=== PATIENT | male | born 1975 | race American Indian/Alaskan Native ===

== ENCOUNTER 2016-12-26 23:39 | Emergency (ER) | payer SELFPAY ==
[2016-12-27 00:09] VITALS: BP 135/85
[2016-12-27 00:32] LABS: Basophils % (Auto) 0.6 % (0.0-1.8); Hematocrit 48.3 % (35.5-45.6); Hemoglobin 15.7 gm/dl (11.8-15.2); Mean Corpuscular HGB Conc 33 % (32-34); Mean Corpuscular Hemoglobin 30 pg (28-32); Mean Corpuscular Volume 93 fl (84-94); Platelet Count 301 K/mm3 (140-440); Red Blood Count 5.19 M/mm3 (3.65-5.03); Red Cell Distribution Width 14.8 % (13.2-15.2); White Blood Count 13.9 K/mm3 (4.5-11.0)
--- NOTE | 2016-12-27 00:49 | Cat Scan Report ---
FINAL REPORT PROCEDURE: CT HEAD/BRAIN WO CON TECHNIQUE: Computerized tomography of the head was performed without contrast material. HISTORY: fall +LOC, ETOH, +Neuro COMPARISON: 01/02/2014 FINDINGS: Skull and scalp: Normal. Paranasal sinuses: Normal. Ventricles and subarachnoid spaces: Normal. Cerebrum: No evidence of hemorrhage, acute infarction or mass . Cerebellum and brainstem: No evidence of hemorrhage, acute infarction or mass. Vasculature: Normal. Comments: None. IMPRESSION: There is no evidence of an acute intracranial process.
--- NOTE | 2016-12-27 00:50 | Cat Scan Report ---
FINAL REPORT PROCEDURE: CT CERVICAL SPINE WO CON TECHNIQUE: Computerized tomography of the cervical spine was performed from the skull base to T1 without contrast material. HISTORY: fall +LOC, ETOH, +Neuro COMPARISON: No prior studies are available for comparison. FINDINGS: The alignment of the vertebral segments is normal. No acute fracture or dislocation. The heights of the vertebral bodies and the disc spaces are maintained. The spinal canal is maintained throughout the cervical spine. The visualized portion of the airway is patent. IMPRESSION: There is no evidence of an acute fracture or dislocation of the cervical spine..
[2016-12-27 01:01] LABS: BUN/Creatinine Ratio 6.36; Blood Urea Nitrogen 7 mg/dL (9-20); Calcium 9.3 mg/dL (8.4-10.2); Carbon Dioxide 15 mmol/L (22-30); Glucose 93 mg/dL (75-100)
[2016-12-27 01:02] LABS: Anion Gap 29 mmol/L; Chloride 99.3 mmol/L (98-107); Potassium 3.8 mmol/L (3.6-5.0); Sodium 139 mmol/L (137-145)
--- NOTE | 2016-12-27 01:16 | XRay Report ---
FINAL REPORT PROCEDURE: XR FOREARM 1V RT TECHNIQUE: RIGHT forearm radiographs, AP views. CPT 03231 HISTORY: Fall, Lac to Rt arm, get report COMPARISON: No prior studies are available for comparison. FINDINGS: There is no acute fracture or dislocation. No radiopaque foreign object. The joint spaces are maintained. IMPRESSION: No acute fracture or dislocation.
--- NOTE | 2016-12-27 01:17 | XRay Report ---
FINAL REPORT PROCEDURE: XR SPINE LUMBOSACRAL 2-3V TECHNIQUE: Lumbar spine radiographs, including AP, lateral, and lumbosacral spot views. CPT 99751 HISTORY: fall Rt Arm Lac, ETOH, Get Report..PT FELL C/O LOWER BACK PAIN/EM COMPARISON: No prior studies are available for comparison. FINDINGS: Alignment: Normal. Vertebral body heights/Disk spaces: Normal. Fracture(s): None. Facets: Normal. Bone mineralization: Normal. IMPRESSION: There is no evidence of an acute fracture or dislocation of the lumbar spine..
== END 2016-12-27 01:00 | disposition left against medical advice (07) ==
LOC: ED 23:39
DX: Z53.21 Procedure and treatment not carried out due to patient leaving prior to being seen by health care provider (principal)
CPT/HCPCS: 36415; 70450; 72100; 72125; 73090; 80048; 85025; G0480; 80320

== ENCOUNTER 2018-01-22 09:57 | Emergency (ER) | payer SELFPAY ==
[2018-01-22] MEDS ORDERED: MOTRIN PO ONE (10:23)
[2018-01-22] MEDS ORDERED: XYLOCAINE 1% 20 mL INFILTRATI ONE (10:23)
[2018-01-22] MEDS ORDERED: CLEOCIN PO ONE (10:24)
--- NOTE | 2018-01-22 10:25 | Emergency Department Report ---
Blank Doc - Documentation Documentation: Patient is a 6-year-old male who has abscess of the right mendez for the past 2 days. Focused physical exam patient does have a quarter sized area of swelling erythema induration with central fluctuance. Patient be moved to a treatment room for I&D. Patient given Motrin 800 and clindamycin for antibiotic coverage.
--- NOTE | 2018-01-22 11:28 | Emergency Department Report ---
Abscess Boil HPI - HPI Chief Complaint: Skin/Abscess/Foreign Body Stated Complaint: JAW PAIN Time Seen by Provider: 01/22/18 10:17 Duration: 3 Days Location: Head (under chin) Severity: Moderate History: Yes Pain, Yes Insect Bite (suspected spider bite), No Fever, No Purulent Drainage, No Numbness, No Foreign Body, No Previous History HPI: This is a 42-year-old -[place] male who presents with an abscess under right side of chin from suspected spider bite for 3 days. 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 He is now complaining of pain 10 out of 10 on pain is scale sharp achy sensation. Patient reports swelling and warmth to the area. He complains of discomfort while eating or moving mouth. Patient reports pain is radiating down neck. He started applying alcohol and taken ibuprofen for symptom relief with no improvement. Patient reports last tetanus vaccine one year ago. He denies fever, drainage, numbness or tingling, bruising, difficulty swallowing, sore throat, nausea or vomiting. Home Medications: Previous Rx's Medication Instructions Recorded Last Taken Type Azithromycin [Zithromax Z-MEL] 250 mg PO DAILY #6 tablet 01/02/14 Unknown Rx HYDROcodone/APAP 5-325 [[place] 1 each PO Q6HR PRN #20 tablet 01/02/14 Unknown Rx 5/325] Prednisone [Prednisone 10 mg 10 mg PO .TAPER #1 tab.ds.pk 01/02/14 Unknown Rx (6-Day Pack, 21 Tabs)] Promethazine [Phenergan] 25 mg PO Q6H PRN #30 tablet 01/02/14 Unknown Rx Clindamycin [Clindamycin CAP] 300 mg PO Q8H #21 cap 01/22/18 Unknown Rx Ibuprofen [Motrin 800 MG tab] 800 mg PO Q8HR PRN #12 tablet 01/22/18 Unknown Rx Allergies/Adverse Reactions: Allergies Allergy/AdvReac Type Severity Reaction Status Date / Time No Known Allergies Allergy Verified 01/01/14 21:16 ED Review of Systems ROS: Stated complaint: JAW PAIN Other details as noted in HPI Constitutional: denies: chills, fever ENT: denies: ear pain, throat pain Respiratory: denies: cough, shortness of breath, wheezing Cardiovascular: denies: chest pain, palpitations Gastrointestinal: denies: abdominal pain, nausea, diarrhea Skin: lesions (abscess under right side of chin). denies: rash Neurological: denies: headache, weakness, paresthesias Psychiatric: denies: anxiety, depression ED Past Medical Hx - Past Medical History Previous Medical History?: Yes Hx Sickle Cell Disease: Yes (sickle cell trait) Hx Asthma: Yes - Surgical History Past Surgical History?: No - Social History Smoking Status: Current Every Day Smoker Substance Use Type: None - Medications Home Medications: Home Medications Medication Instructions Recorded Confirmed Last Taken Type Azithromycin [Zithromax Z-MEL] 250 mg PO DAILY #6 tablet 01/02/14 Unknown Rx HYDROcodone/APAP 5-325 [[place] 1 each PO Q6HR PRN #20 tablet 01/02/14 Unknown Rx 5/325] Prednisone [Prednisone 10 mg 10 mg PO .TAPER #1 tab.ds.pk 01/02/14 Unknown Rx (6-Day Pack, 21 Tabs)] Promethazine [Phenergan] 25 mg PO Q6H PRN #30 tablet 01/02/14 Unknown Rx Clindamycin [Clindamycin CAP] 300 mg PO Q8H #21 cap 01/22/18 Unknown Rx Ibuprofen [Motrin 800 MG tab] 800 mg PO Q8HR PRN #12 tablet 01/22/18 Unknown Rx ED Abscess Boil Physical Exam - Exam General: Vital signs noted. No distress. Alert and acting appropriately. Front/Back of Body, Lg (Color): 1 - Half a centimeter fluctuant abscess of right mandible, tenderness, erythema , and induration Size: 1 cm (half a centimeter) Exam: Yes Tenderness, Yes Fluctuance, Yes Surrounding Cellulites/Erythema, Yes Normal Neurologic Exam, Yes Normal Circulation, No Lymphangitis, No Crepitation , No Heart Murmur I & D Note - I & D Note I & D Note: The area was prepared and draped in the usual, sterile manner. The site was anesthetized with 1% lidocaine without epinephrine. A linear incision along the local skin lines was made and the purulent material expressed. The abcess was explored thoroughly and sequestered pockets were opened. Bleeding was minimal. Packing: idodoform. Followup: The patient tolerated the procedure well without complications. Standard post-procedure care was explained and return precautions are given. ED Course Vital Signs 01/22/18 10:02 Temperature 98.4 F Pulse Rate 63 Respiratory 18 Rate Blood Pressure 115/69 O2 Sat by Pulse 99 Oximetry Critical care attestation.: If time is entered above; I have spent that time in minutes in the direct care of this critically ill patient, excluding procedure time. ED Medical Decision Making - Medical Decision Making This is a 42 y.o. male that presents with a painful abscess to right side and chin for 3 days. No history of prior abscess. Suspected spider bite. Patient is stable and examined by me and Dr. Evans. Physical assessment of half a centimeter fluctuance nodule to right mandible. No acute signs of distress noted. Given analgesic in ER. I&D refer to note. Discussed plan to start clindamycin and ibuprofen with patient. Educated patient on follow up plan to have packing removed and wound reassessed in 2-3 days. Patient agrees to ED plan of care. Discharged home and follow up with PCP in 2-3 days. ED Disposition Clinical Impression: Abscess of chin Disposition: DC- TO HOME OR SELFCARE Is pt being admited?: No Does the pt Need Aspirin: No Condition: Stable Instructions: Abscess Incision and Drainage (ED), Abscess (ED) Additional Instructions: Keep packing in place for 2-3 days. Return to ER or f/u with PCP to have packing removed and wound reassessed. Complete full round of clindamycin antibiotic as prescribed. Follow up with PCP or ER in 2-3 days. Return to ER if foul smelling discharge, swelling, or severe pain to wound. Prescriptions: Clindamycin [Clindamycin CAP] 300 mg PO Q8H #21 cap Ibuprofen [Motrin 800 MG tab] 800 mg PO Q8HR PRN #12 tablet PRN Reason: Pain , Severe (7-10) Referrals: [facility] [Outside] - 3-5 Days [facility] [Outside] - 3-5 Days [facility] [Outside] - 3-5 Days Time of Disposition: 11:57 Print Language: OCCITAN
[2018-01-22 12:24] VITALS: BP 115/74
== END 2018-01-22 12:23 | disposition home or self-care (01) ==
LOC: ED 09:57
DX: L02.01 Cutaneous abscess of face (principal); J45.909 Unspecified asthma, uncomplicated; F17.200 Nicotine dependence, unspecified, uncomplicated
CPT/HCPCS: 99283

== ENCOUNTER 2018-06-18 08:53 | Emergency (ER) | payer SELFPAY ==
[2018-06-18 10:07] VITALS: BP 122/79
[2018-06-18] MEDS ORDERED: NORCO 10/325 PO ONE (10:17)
[2018-06-18] MEDS ORDERED: ZOFRAN ODT PO ONE (10:17)
[2018-06-18 10:34] LABS: Basophils # (Auto) 0.1 K/mm3 (0.0-0.1); Basophils % (Auto) 1.7 % (0.0-1.8); Eosinophils % (Auto) 0.4 % (0.0-4.3); Hematocrit 47.5 % (35.5-45.6); Hemoglobin 16.1 gm/dl (11.8-15.2); Lymphocytes % (Auto) 39.4 % (13.4-35.0); Mean Corpuscular HGB Conc 34 % (32-34); Mean Corpuscular Volume 91 fl (84-94); Monocytes # (Auto) 0.5 K/mm3 (0.0-0.8); Monocytes % (Auto) 10.1 % (0.0-7.3); Platelet Count 272 K/mm3 (140-440); Red Blood Count 5.24 M/mm3 (3.65-5.03); Red Cell Distribution Width 14.6 % (13.2-15.2)
[2018-06-18 10:48] LABS: Alanine Aminotransferase 20 units/L (7-56); Albumin 4.5 g/dL (3.9-5); BUN/Creatinine Ratio 9; Blood Urea Nitrogen 6 mg/dL (9-20); Calcium 9.1 mg/dL (8.4-10.2); Hemolysis Index 25
--- NOTE | 2018-06-18 11:48 | XRay Report ---
RIGHT RIBS, 3 VIEWS: History: pain. Routine views of the rib cage demonstrate normal mineralization with no significant contour abnormalities, fractures or destructive lesions. PA view of the chest demonstrates no underlying cardiopulmonary abnormalities, fluid or pneumothorax. IMPRESSION: Unremarkable right rib series.
--- NOTE | 2018-06-18 12:03 | Emergency Department Report ---
ED General Adult HPI - General Chief complaint: Dyspnea/Respdistress Stated complaint: CB Time Seen by Provider: 06/18/18 10:03 Source: patient, EMS Mode of arrival: Ambulatory Limitations: No Limitations - History of Present Illness Initial comments: Patient presents to emergency department with chief complaint of a cough with right sided rib cage pain. Patient states the cough started about a month ago and has been on and off since that time but he noticed that he began to have severe right sided rib pain 3 days ago. The patient denies any injury to his ribs. 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 Patient denies any chest pain. Patient states the right rib pain is so intense he is not able to wear shirt over it. -: Gradual Location: chest Radiation: non-radiation Severity scale (0 -10): 10 Quality: sharp Consistency: constant Improves with: none Worsens with: none Associated Symptoms: denies other symptoms Treatments Prior to Arrival: none - Related Data Previous Rx's Medication Instructions Recorded Last Taken Type Azithromycin [Zithromax Z-MEL] 250 mg PO DAILY #6 tablet 01/02/14 Unknown Rx HYDROcodone/APAP 5-325 [[place] 1 each PO Q6HR PRN #20 tablet 01/02/14 Unknown Rx 5/325] Prednisone [Prednisone 10 mg 10 mg PO .TAPER #1 tab.ds.pk 01/02/14 Unknown Rx (6-Day Pack, 21 Tabs)] Promethazine [Phenergan] 25 mg PO Q6H PRN #30 tablet 01/02/14 Unknown Rx Clindamycin [Clindamycin CAP] 300 mg PO Q8H #21 cap 01/22/18 Unknown Rx Ibuprofen [Motrin 800 MG tab] 800 mg PO Q8HR PRN #12 tablet 01/22/18 Unknown Rx Acetaminophen/Codeine [Tylenol 1 tab PO Q6H PRN #14 tab 03/21/18 Unknown Rx /Codeine # 3 tab] Cetirizine HCl [ZyrTEC] 10 mg PO QAM 14 Days #14 capsule 03/21/18 Unknown Rx Fluticasone [Flonase] 1 spray NS QDAY 14 Days #1 bottle 03/21/18 Unknown Rx Ibuprofen [Motrin] 800 mg PO Q8HR PRN #15 tablet 03/21/18 Unknown Rx Penicillin V Potassium 500 mg PO Q8H 10 Days #30 tablet 03/21/18 Unknown Rx Acyclovir [Zovirax Tab] 400 mg PO 5XD #35 tablet 06/18/18 Unknown Rx Ibuprofen [Motrin] 800 mg PO Q8HR PRN #30 tablet 06/18/18 Unknown Rx oxyCODONE /ACETAMINOPHEN [Percocet 1 tab PO Q6HR PRN #20 tablet 06/18/18 Unknown Rx 5/325] Allergies Allergy/AdvReac Type Severity Reaction Status Date / Time No Known Allergies Allergy Verified 06/18/18 08:54 ED Review of Systems ROS: Stated complaint: CB Other details as noted in HPI Comment: All other systems reviewed and negative Constitutional: denies: chills, fever Eyes: denies: eye pain, eye discharge, vision change ENT: denies: ear pain, throat pain Respiratory: denies: cough, shortness of breath, wheezing Cardiovascular: denies: chest pain, palpitations Endocrine: no symptoms reported Gastrointestinal: denies: abdominal pain, nausea, diarrhea Genitourinary: denies: urgency, dysuria Musculoskeletal: denies: back pain, joint swelling, arthralgia Skin: denies: rash, lesions Neurological: denies: headache, weakness, paresthesias Psychiatric: denies: anxiety, depression Hematological/Lymphatic: denies: easy bleeding, easy bruising ED Past Medical Hx - Past Medical History Previous Medical History?: Yes Hx Sickle Cell Disease: Yes (sickle cell trait) Hx Asthma: Yes - Surgical History Past Surgical History?: No Additional Surgical History: bronchitis - Social History Smoking Status: Current Every Day Smoker Substance Use Type: None - Medications Home Medications: Home Medications Medication Instructions Recorded Confirmed Last Taken Type Azithromycin [Zithromax Z-MEL] 250 mg PO DAILY #6 tablet 01/02/14 Unknown Rx HYDROcodone/APAP 5-325 [[place] 1 each PO Q6HR PRN #20 tablet 01/02/14 Unknown Rx 5/325] Prednisone [Prednisone 10 mg 10 mg PO .TAPER #1 tab.ds.pk 01/02/14 Unknown Rx (6-Day Pack, 21 Tabs)] Promethazine [Phenergan] 25 mg PO Q6H PRN #30 tablet 01/02/14 Unknown Rx Clindamycin [Clindamycin CAP] 300 mg PO Q8H #21 cap 01/22/18 Unknown Rx Ibuprofen [Motrin 800 MG tab] 800 mg PO Q8HR PRN #12 tablet 01/22/18 Unknown Rx Acetaminophen/Codeine [Tylenol 1 tab PO Q6H PRN #14 tab 03/21/18 Unknown Rx /Codeine # 3 tab] Cetirizine HCl [ZyrTEC] 10 mg PO QAM 14 Days #14 capsule 03/21/18 Unknown Rx Fluticasone [Flonase] 1 spray NS QDAY 14 Days #1 bottle 03/21/18 Unknown Rx Ibuprofen [Motrin] 800 mg PO Q8HR PRN #15 tablet 03/21/18 Unknown Rx Penicillin V Potassium 500 mg PO Q8H 10 Days #30 tablet 03/21/18 Unknown Rx Acyclovir [Zovirax Tab] 400 mg PO 5XD #35 tablet 06/18/18 Unknown Rx Ibuprofen [Motrin] 800 mg PO Q8HR PRN #30 tablet 06/18/18 Unknown Rx oxyCODONE /ACETAMINOPHEN [Percocet 1 tab PO Q6HR PRN #20 tablet 06/18/18 Unknown Rx 5/325] ED Physical Exam - General Limitations: No Limitations General appearance: alert, in no apparent distress - Head Head exam: Present: atraumatic, normocephalic - Eye Eye exam: Present: normal appearance, PERRL, EOMI - ENT ENT exam: Present: mucous membranes moist - Neck Neck exam: Present: normal inspection - Respiratory Respiratory exam: Present: normal lung sounds bilaterally, chest wall tenderness, other (patient has tenderness to palpation along the dermatome for this erythema without lesions the pain stops at the spine and does not cross the midline as well as it doesn't cross the anterior midline). Absent: respiratory distress, wheezes, rales - Cardiovascular Cardiovascular Exam: Present: regular rate, normal rhythm. Absent: systolic murmur, diastolic murmur, rubs, gallop - GI/Abdominal GI/Abdominal exam: Present: soft, normal bowel sounds. Absent: distended, tenderness - Rectal Rectal exam: Present: deferred - Extremities Exam Extremities exam: Present: normal inspection - Back Exam Back exam: Present: normal inspection - Neurological Exam Neurological exam: Present: alert, oriented X3, CN II-XII intact. Absent: motor sensory deficit - Psychiatric Psychiatric exam: Present: normal affect, normal mood - Skin Skin exam: Present: warm, dry, intact, normal color. Absent: rash ED Course Vital Signs 06/18/18 06/18/18 06/18/18 09:02 09:34 10:00 Temperature 98.2 F Pulse Rate 63 56 L 60 Respiratory 18 15 10 L Rate Blood Pressure 130/78 122/79 O2 Sat by Pulse 100 99 Oximetry ED Medical Decision Making - Lab Data Result diagrams: 06/18/18 09:48 06/18/18 09:48 Lab Results 06/18/18 06/18/18 Range/Units 09:48 09:48 WBC 5.1 (4.5-11.0) K/mm3 RBC 5.24 H (3.65-5.03) M/mm3 Hgb 16.1 H (11.8-15.2) gm/dl Hct 47.5 H (35.5-45.6) % MCV 91 (84-94) fl MCH 31 (28-32) pg MCHC 34 (32-34) % RDW 14.6 (13.2-15.2) % Plt Count 272 (140-440) K/mm3 Lymph % (Auto) 39.4 H (13.4-35.0) % [place] % (Auto) 10.1 H (0.0-7.3) % Eos % (Auto) 0.4 (0.0-4.3) % Baso % (Auto) 1.7 (0.0-1.8) % Lymph # 2.0 (1.2-5.4) K/mm3 [place] # 0.5 (0.0-0.8) K/mm3 Eos # 0.0 (0.0-0.4) K/mm3 Baso # 0.1 (0.0-0.1) K/mm3 Seg Neutrophils % 48.4 (40.0-70.0) % Seg Neutrophils # 2.5 (1.8-7.7) K/mm3 Sodium 140 (137-145) mmol/L Potassium 4.1 (3.6-5.0) mmol/L Chloride 104.2 (98-107) mmol/L Carbon Dioxide 27 (22-30) mmol/L Anion Gap 13 mmol/L BUN 6 L (9-20) mg/dL Creatinine 0.7 L (0.8-1.5) mg/dL Estimated GFR > 60 ml/min BUN/Creatinine Ratio 9 % Glucose 80 (75-100) mg/dL Calcium 9.1 (8.4-10.2) mg/dL Total Bilirubin 0.60 (0.1-1.2) mg/dL AST 19 (5-40) units/L ALT 20 (7-56) units/L Alkaline Phosphatase 77 (35-129) units/L Total Protein 7.2 (6.3-8.2) g/dL Albumin 4.5 (3.9-5) g/dL Albumin/Globulin Ratio 1.7 % - EKG Data -: EKG Interpreted by Me EKG shows normal: sinus rhythm Rate: normal, bradycardia - EKG Data Interpretation: other (early repol) - Radiology Data Radiology results: report reviewed - Medical Decision Making Patient was extremely concerned that he had a EKG done since he was not having chest pain. Patient states he discussed this with the pupil from it but EKG was still done. EKG shows early re-pole. EKG was also reviewed by Dr. Lewis who also agreed it was not a STEMI Discussed with the patient and my concern that he could have beginning phases of shingles Critical care attestation.: If time is entered above; I have spent that time in minutes in the direct care of this critically ill patient, excluding procedure time. ED Disposition Clinical Impression: Nerve pain, Zoster Disposition: DC-01 TO HOME OR SELFCARE Is pt being admited?: No Does the pt Need Aspirin: No Condition: Stable Instructions: Herpes Zoster (ED) Additional Instructions: return if worse Prescriptions: Acyclovir [Zovirax Tab] 400 mg PO 5XD #35 tablet Ibuprofen [Motrin] 800 mg PO Q8HR PRN #30 tablet PRN Reason: pain oxyCODONE /ACETAMINOPHEN [Percocet 5/325] 1 tab PO Q6HR PRN #20 tablet PRN Reason: Pain Referrals: PRIMARY CARE, [Primary Care Provider] - 3-5 Days MORRIS RASCON DO [Staff Physician] - 3-5 Days [facility] [Provider Group] - 3-5 Days [facility] [Provider Group] - 3-5 Days Time of Disposition: 12:52
[2018-06-18] MEDS ORDERED: TORADOL IM ONE (12:10)
[2018-06-18] MEDS ORDERED: MORPHINE IM ONE (12:10)
== END 2018-06-18 13:42 | disposition home or self-care (01) ==
LOC: ED 08:53
DX: R05 Cough (principal); R07.81 Pleurodynia; B02.9 Zoster without complications; M79.2 Neuralgia and neuritis, unspecified; D57.3 Sickle-cell trait; F17.200 Nicotine dependence, unspecified, uncomplicated
CPT/HCPCS: 36415; 71101; 80053; 85025; 93005; 93010; 96372; 99284; J1885; J2270; Q0162